=== PATIENT | female | born 1990 | race Caucasian/White ===

== ENCOUNTER 2020-04-26 00:02 | Inpatient (IN) | payer OTHER ==
--- NOTE | 2020-04-25 20:24 | PCM.LDHP ---
L&D History of Present Illness - General Date of Service: 04/26/20 Admit Problem/Dx: Admission Diagnosis/Problem Admission Diagnosis/Problem 04/25/20 20:13 Alicia is a 29-year-old 1 para 0 white female scheduled to be admitted on 04/26/2020 at 40-2/7 weeks gestational age with an DANDRE of 04/24/2020 for induction of labor. Source of Information: Patient History Limitations: Reports: No Limitations - History of Present Illness Introduction:: Alicia is a 29-year-old 1 para 0 white female scheduled to be admitted on 04/26/2020 at 40-2/7 weeks gestational age with an DANDRE of 04/24/2020 for induction of labor. Procedure of induction of labor, its risks, benefits, limitations and follow-up were all discussed in detail with patient and her . They appear to understand and wished to proceed. 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 DANDRE of 04/24/2020 is determined by a certain last menstrual period starting 07/19/2019 and supported by 2 ultrasounds done on 10/07/2019 at 11-2/7 weeks gestational age and again at 12/22/2019 at 21- 6/7 weeks gestational age. Patient had menarche at age 10. Cycles q. 26 to 20 days. Positive hCG was on 08/17/2019. She was not using any contraception at the time of conception and this is a desired . Her last menstrual period of 07/19/2019 was certain. She denies any STDs. Has not had any abnormal Pap smears in the past. course. Alicia was seen for first annual visit on 10/07/2019. Ultrasound was done at that time. She was seen on a regular basis throughout the pregnan cy. Her weight gain was from 152 to 175.4 pounds for 23.4 pound increase. Her vital signs remained stable throughout the course. Fundal height growth was appropriate. Patient desired natural but is okay with epidural if necessary. She is group B strep negative. Her blood is all negative. She did receive Rh immunoglobulin on 02/01/2020. She plans to breast-feed. Her prequel noninvasive screen was negative for trisomy 21, 18 and 13. She is noted to have a vitamin D deficiency has not been on supplement for that throughout the . She is rubella immune. She had her influenza immunization on 12/14/2019 and her Tdap on 02/14/2020. She had her hepatitis B immunizations in 2013. Laboratory testing in shows her blood to be O- with a negative an tibody screen. First labs showed a hemoglobin of 13.0 g/dL and platelets were 330,000. She is rubella immune. RPR is nonreactive. Urine culture was negative. Hepatitis B surface antigen and HIV assays were both negative. Gonorrhea tests were both negative. TSH on 10/07/2019 shows a level of 1.251 mg/mL. Her hemoglobin at second trimester was 12.1 g/dL and platelets were 310,000. 1 hour GTT was mildly elevated at 132 mg/dL. Her 3-hour glucose tolerance test however was normal with a fasting blood sugar 94, a 1 hour glucose was 127, and a 2-hour glucose was 114 and 3-hour glucose was 99. Repeat hemoglobin on 02/01/2020 was 11.4 g/dL and her platelets were 345,000. She is group B strep negative. Antibody screen done prior to her Rh immunoglobulin therapy was negative. Allergies: None Medications: 1. vitamins 1 daily 2. Vitamin D3 capsuledose unknown daily 3. Pepcid tabs 1 tablet daily as needed for gastroesophageal reflux. 4. Vitamin B6 tablets Past medical history: 1. GERD 2. Spider nevi 3. Primary infertility Past surgical history: 1. [place] teeth extraction. Family history: Mother is alive but with history of hypothyroidism, osteopo rosis, rheumatoid arthritis and depression. Father is alive and well with history of kidney stones. Brother is alive and well. Maternal grandmother is age 95 from with history of arthritis. from old age. Maternal grandfather is secondary to congestive heart failure. Paternal grandmother is at age 75 from dementia. Paternal grandfather is at age 60 from colon cancer. There is no known family history of cancer otherwise, bleeding or blood clotting disorders, anesthesia related issues or related issues. Social history: Patient is . is Edwin Keller. She is a college graduate with a degree in nursing. She has worked in the OR and also works at [employer]. She does not use any significant muscle alcohol, drugs or tobacco. She and her Dick live in [place], [place]. Review of systems: In general patient has no complaints. Baby has been active. Skin: Negative Lungs: No infectious symptoms or shortness of breath Cardiovascular: No chest pain or exercise intolerance Breasts: No lumps, changes in size, pain, dimpling, discharge or axillary or supraclavicular concerns. GI: Negative : Negative Musculoskeletal: Negative Neurological: Negative Physical exam: In general the patient is well-developed, well-nourished, pleasant female of stated age in no acute distress. Last evaluation clinic on 05/2020 her blood pressure was normal. Fundal height at 36.5 cm. Baby in vertex presentation. Cervix was 2+ centimeters, 85% effaced, soft, -1, mid position. Skin is warm dry without lesions. HEENT, neck and back within normal limits. Lungs are clear with good breath sounds in all lung mead. Cardiovascular exam shows regular and rhythm without murmurs. Breast exam performed at first visit was unremarkable. Is not repeated today. Patient does plan to breast-feed. Abdomen is gravid with fundal height of 36.5 cm. Baby in vertex presentation. Genital per digital exam is as above. Extremities and neurological exam are grossly within normal limits. - Related Data Allergies/Adverse Reactions: Allergies Allergy/AdvReac Type Severity Reaction Status Date / Time No Known Allergies Allergy Verified 12/19/17 11:18 Home Medications: Home Meds Ascorbic Acid [Vitamin C] 1,000 mg PO DAILY 04/12/20 [History] Cholecalciferol (Vitamin D3) [Vitamin D] 2,000 units PO DAILY 04/12/20 [History] Famotidine [Pepcid] 20 mg PO DAILY 04/12/20 [History] Pnv No.95/Ferrous Fum/Folic AC [ Tablet] 1 each PO BID 04/12/20 [History] Past Medical History HEENT History: Reports: Impaired Vision - Past Surgical History HEENT Surgical History: Reports: Oral Surgery Social & Family History - Family History Family Medical History: No Pertinent Family History - Caffeine Use Caffeine Use: Reports: Coffee H&P Review of Systems - Review of Systems: Review Of Systems: See Below L&D Exam - Exam Exam: See Below Problem List Initiated/Reviewed/Updated: Yes Assessment/Plan Comment:: Charmaine Vargas is a 29-year-old 1 para 0 white female scheduled to be admitted on 04/26/2020 at 40-2/7 weeks gestational age with an DANDRE of 04/24/2020 for induction of labor. 2. Group B strep negative 3. Patient desires natural labor but is okay with epidural if necessary. 4. Patient plans to breast-feed. 5. [place] noninvasive screen was negative for trisomy 21, 18 and 13. 6. Vitamin D deficiency being supplemented during 5. O- blood patient given RhoGam during the course of . Plan: 1. Admit early on 04/26/2020 for induction of labor. Will initiate labor with Pitocin per protocol and then proceed with AROM when possible. 2. Pain medication and control is discussed with patient. She wishes natural labor but is open to epidural which has been discussed with her. 3. Support breast-feeding decision 4. Routine labor care 5. Labs upon admission include CBC, RPR, Covid testing
[2020-04-26] MEDS ORDERED: Sodium Chloride 0.9% 10 ML Syringe FLUSH PRN (00:09)
[2020-04-26] MEDS ORDERED: Nalbuphine 10 MG/1 ML Vial IVPUSH PRN (00:09)
[2020-04-26] MEDS ORDERED: Ondansetron 4 MG/2 ML SDV IVPUSH PRN (00:09)
[2020-04-26] MEDS ORDERED: Oxytocin/Lactated Ringers 10 UNIT/1,000 ML BAG IV SCH ×2 (00:15)
[2020-04-26] MEDS: Lactated Ringers 1,000 ML IV SCH ×4 (01:31→10:20)
[2020-04-26] MEDS ORDERED: ePHEDrine 50 MG/ML SDV IVPUSH PRN (07:46)
[2020-04-26] MEDS ORDERED: Bupivacaine/fentaNYL/NS 100 ML Bag EPIDUR PRN (07:46)
[2020-04-26] MEDS ORDERED: fentaNYL 100 MCG/2 ML SDV EPIDUR PRN (07:46)
[2020-04-26] MEDS ORDERED: diphenhydrAMINE 50 MG/ML SDV IVPUSH PRN (07:46)
--- NOTE | 2020-04-26 09:14 | PCM.PREANE ---
Preanesthetic Assessment - Procedure Proposed Procedure: jose - Anesthesia/Transfusion/Family Hx Anesthesia History: Prior Anesthesia Without Reaction Family History of Anesthesia Reaction: No Transfusion History: No Prior Transfusion(s) - Review of Systems General: No Symptoms Pulmonary: No Symptoms Cardiovascular: No Symptoms Gastrointestinal: No Symptoms Neurological: No Symptoms Other: Reports: None - Physical Assessment Vital Signs: Last Vital Signs Temp 99.1 F 04/26/20 00:10 Pulse 91 04/26/20 00:10 Resp 14 04/26/20 00:10 BP 132/86 04/26/20 00:10 Pulse Ox Height: 5 ft 2 in Weight: 81.647 kg ASA Class: 2 Mental Status: Alert & Oriented x3 Airway Class: Mallampati = 1 Dentition: Reports: Normal Dentition Thyro-Mental Finger Breadths: 3 Mouth Opening Finger Breadths: 3 ROM/Head Extension: Full Lungs: Clear to Auscultation, Normal Respiratory Effort Cardiovascular: Regular Rate, Regular Rhythm - Lab Values: Laboratory Last Values WBC 12.47 K/mm3 (3.98-10.04) H 04/26/20 00:34 RBC 3.98 M/mm3 (3.98-5.22) 04/26/20 00:34 Hgb 11.6 gm/dl (11.2-15.7) 04/26/20 00:34 Hct 35.9 % (34.1-44.9) 04/26/20 00:34 MCV 90.2 fl (79.4-94.8) 04/26/20 00:34 MCH 29.1 pg (25.6-32.2) 04/26/20 00:34 MCHC 32.3 g/dl (32.2-35.5) 04/26/20 00:34 RDW Std Deviation 53.8 fL (36.4-46.3) H 04/26/20 00:34 Plt Count 281 K/mm3 (182-369) 04/26/20 00:34 MPV 8.9 fl (9.4-12.3) L 04/26/20 00:34 Neut % (Auto) 73.7 % (34.0-71.1) H 04/26/20 00:34 Lymph % (Auto) 19.0 % (19.3-51.7) L 04/26/20 00:34 [place]vert % (Auto) 6.2 % (4.7-12.5) 04/26/20 00:34 Eos % (Auto) 0.8 (0.7-5.8) 04/26/20 00:34 Baso % (Auto) 0.1 % (0.1-1.2) 04/26/20 00:34 Neut # (Auto) 9.20 K/mm3 (1.56-6.13) H 04/26/20 00:34 Lymph # (Auto) 2.37 K/mm3 (1.18-3.74) 04/26/20 00:34 Calvert # (Auto) 0.77 K/mm3 (0.24-0.36) H 04/26/20 00:34 Eos # (Auto) 0.10 K/mm3 (0.04-0.36) 04/26/20 00:34 Baso # (Auto) 0.01 K/mm3 (0.01-0.08) 04/26/20 00:34 SARS-CoV-2 RNA (JOHN) Negative (NEGATIVE) 04/26/20 00:15 - Allergies Allergies/Adverse Reactions: Allergies Allergy/AdvReac Type Severity Reaction Status Date / Time No Known Allergies Allergy Verified 04/26/20 01:25 - Blood Blood Available: No - Acknowledgements Anesthesia Type Planned: Epidural Pt an Appropriate Candidate for the Planned Anesthesia: Yes Alternatives and Risks of Anesthesia Discussed w Pt/Guardian: Yes Pt/Guardian Understands and Agrees with Anesthesia Plan: Yes PreAnesthesia Questionnaire HEENT History: Reports: Impaired Vision Cardiovascular History: Reports: None Respiratory History: Reports: None Gastrointestinal History: Reports: GERD : 1 Para: 0 Musculoskeletal History: Reports: None Hematologic History: Reports: Anemia Oncologic (Cancer) History: Reports: None - Past Surgical History HEENT Surgical History: Reports: Oral Surgery Other HEENT Surgeries/Procedures: wisdom tooth extraction, root canal - SUBSTANCE USE Tobacco Use Status *Q: Never Tobacco User Tobacco Use Within Last Twelve Months: No Second Hand Smoke Exposure: No Days Per Week of Alcohol Use: 0 Recreational Drug Use History: No - HOME MEDS Home Medications: Home Meds Ascorbic Acid [Vitamin C] 1,000 mg PO DAILY 04/12/20 [History] Cholecalciferol (Vitamin D3) [Vitamin D] 2,000 units PO DAILY 04/12/20 [History] Famotidine [Pepcid] 20 mg PO DAILY 04/12/20 [History] Pnv No.95/Ferrous Fum/Folic AC [ Tablet] 1 each PO BID 04/12/20 [H istory] Iron 18 mg PO BID 04/26/20 [History] - CURRENT (IN HOUSE) MEDS Current Meds: Current Medications Diphenhydramine HCl (Benadryl) 25 mg IVPUSH Q6H PRN PRN Reason: pruritis Ephedrine Sulfate (Ephedrine Sulfate) 5 mg IVPUSH ASDIRECTED PRN PRN Reason: Hypotension Fentanyl (Sublimaze) 100 mcg EPIDUR Q3H PRN PRN Reason: Pain Last Admin: 04/26/20 08:44 Dose: 100 mcg Documented by: Fentanyl/Bupivacaine HCl (Fentanyl/Bupivacaine/Ns 2 Mcg-0.125% 100 Ml) 100 ml EPIDUR ASDIRECTED PRN PRN Reason: Pain Last Admin: 04/26/20 08:44 Dose: 100 ml Documented by: Oxytocin/Lactated Ringer's (Pitocin In Lr 10 Units/1,000 Ml) 10 unit in 1,000 mls @ 12 mls/hr IV TITRATE MATT; Protocol Last Titration: 04/26/20 07:04 Dose: 14 munits/min, 84 mls/hr Documented by: Oxytocin/Lactated Ringer's (Pitocin In Lr 10 Units/1,000 Ml) 10 unit in 1,000 mls @ 500 mls/hr IV .CONTINUOUS MATT Lactated Ringer's (Ringers, Lactated) 1,000 mls @ 100 mls/hr IV ASDIRECTED MATT Last Admin: 04/26/20 08:46 Dose: 100 mls/hr Documented by: Nalbuphine HCl (Nubain) 10 mg IVPUSH Q2H PRN PRN Reason: Pain Ondansetron HCl (Zofran) 4 mg IVPUSH Q4H PRN PRN Reason: Nausea/Vomiting Sodium Chloride (Saline Flush) 10 ml FLUSH ASDIRECTED PRN PRN Reason: Keep Vein Open
[2020-04-26] MEDS ORDERED: Bupivacaine 0.25% 10 ML SDV ONE (14:00)
[2020-04-26] MEDS ORDERED: Benzocaine/Menthol 20%-0.5% Spray 56 GM Canister TOP PRN (18:03)
[2020-04-26] MEDS ORDERED: Witch Hazel Medicated Pads 40/Jar TOP PRN (18:03)
--- NOTE | 2020-04-26 18:04 | PCM.SN.2 ---
- Free Text/Narrative Note: Alicia is a 29-year-old 1 para 1-0-0-1 female scheduled to be admitted on 04/26/2020 at 40-2/7 weeks gestational age with an DANDRE of 04/24/2020 for induction of labor. She was started on Pitocin and shortly after midnight on 04/26/2020. This was increased to provide adequate contractions. At approximately 0730 hrs. artificial rupture membranes was undertaken with resultant clear amniotic fluid. Patient's labor progressed. She underwent epidural for labor analgesia with good results. heart tones occasionally had a short bradycardias associated with them. These however resolved spontaneously every time and variability remained good throughout the labor course. At 1559 hrs. the patient who had been pushing for approximately 1 hour but began having repetitive late decelerations and the decision was made to proceed with attempt at vacuum extraction. This was discussed in detail with the patient and her including risk, benefits, alternatives of care and they gave verbal consent per protocol for the procedure. The vacuum extraction was then undertaken. Within the course of 3 contractions the patient delivered a viable, cameron, female with Apgars of 8 and 9 in a direct occiput posterior position. It should be noted in between contractions vacuum negative pressure was released. Midline episiotomy was made but was extended to a small fourth degree laceration with delivery of the baby's head. The baby was placed on mom's abdomen. Nose mouth were bulb suction. Pitocin was increased to 500 cc an hour to facilitate increase in uterine tone to reduce risk of bleeding. The baby weighed 2660 g (5 pounds 13.8 ounces) and was 19.5 inches long. The baby is allowed to stay with mom for period of time. The umbilical cord had 3 vessels within it. The umbilical cord is allowed to pulsate for 3 minutes after which was then clamped and cut by the baby's father. Cord blood was obtained. The placenta delivered in a Schultze presentation at 1610 hrs., it was small but appeared intact and complete and was discarded per patient desire. Fourth-degree perineal laceration was repaired in routine fashion. The rectal mucosa was reapproximated with a short running suture of 3-0 Monocryl. The external anal sphincter was repaired in the routine fashion. Is reapproximated midline and with a [id number] suture was sewn together. The capsule was closed around the anal sphincter muscle. Remainder of the episiotomy/laceration was repaired in a routine episiotomy fashion with 3-0 Monocryl suture. The patient was evaluated rectal exam at the end of the procedure and the rectal mucosa appeared intact. Estimated blood loss was 300 cc. The patient plans to breast-feed. Condition: Good
[2020-04-26] MEDS: Ibuprofen 600 MG Tab PO PRN ×2 (18:08→23:00)
[2020-04-26] MEDS: Acetaminophen 325 MG Tab PO PRN (20:32)
[2020-04-26] MEDS: Docusate Sodium 100 MG Cap PO SCH (20:33)
[2020-04-27] MEDS: Ibuprofen 600 MG Tab PO PRN ×3 (04:18→18:14)
--- NOTE | 2020-04-27 06:55 | PCM.PNPP ---
- General Info Date of Service: 04/27/20 Subjective Update: Doing well. Minimal pain. Voiding. Tolerating pos. No BM yet - Review of Systems General: Reports: No Symptoms HEENT: Reports: No Symptoms Pulmonary: Reports: No Symptoms Cardiovascular: Reports: No Symptoms Gastrointestinal: Reports: No Symptoms Genitourinary: Reports: No Symptoms Musculoskeletal: Reports: No Symptoms Skin: Reports: No Symptoms Neurological: Reports: No Symptoms Psychiatric: Reports: No Symptoms - General Info Date of Service: 04/27/20 - Patient Data Vital Signs - Most Recent: Last Vital Signs Temp 36.5 C 04/27/20 04:15 Pulse 65 04/27/20 04:15 Resp 16 04/27/20 04:15 BP 102/84 04/27/20 04:15 Pulse Ox 99 04/27/20 04:15 Weight - Most Recent: 81.647 kg I&O - Last 24 Hours: Intake & Output 04/26/20 04/26/20 04/27/20 14:59 22:59 06:59 Intake Total 0 6792 Output Total 2500 360 Balance -2500 6432 Lab Results - Last 24 Hours: Laboratory Results - last 24 hr 04/26/20 04/26/20 Range/Units 00:34 20:33 RPR Non-reactive (NONREACTIVE) Blood Type O NEGATIVE Gel Antibody Screen Negative Screen 0 ros/5 flds - neg RhIG Candidate? Yes Rhogam Indicated Yes, baby rh unknown H Med Orders - Current: Current Medications Acetaminophen (Tylenol) 650 mg PO Q4H PRN PRN Reason: mild pain or fever Last Admin: 04/26/20 20:32 Dose: 650 mg Documented by: Benzocaine/Menthol (Dermoplast Pain Relief [place]) 0 gm TOP ASDIRECTED PRN PRN Reason: Perineal Comfort Measure Last Admin: 04/26/20 18:09 Dose: 1 can Documented by: Docusate Sodium (Colace) 100 mg PO BID [facility] Last Admin: 04/26/20 20:33 Dose: 100 mg Documented by: Ibuprofen (Motrin) 600 mg PO Q4H PRN PRN Reason: Mild pain or fever Last Admin: 04/27/20 04:18 Dose: 600 mg Documented by: Prenat Multivit/College Teacher/Iron/Folic Ac ( Plus Iron) 1 each PO DAILY [facility] Matteo Russell (Tucks) 1 pad TOP ASDIRECTED PRN PRN Reason: Perineal Comfort Measure Last Admin: 04/26/20 18:09 Dose: 1 container Documented by: Discontinued Medications Diphenhydramine HCl (Benadryl) 25 mg IVPUSH Q6H PRN PRN Reason: pruritis Ephedrine Sulfate (Ephedrine Sulfate) 5 mg IVPUSH ASDIRECTED PRN PRN Reason: Hypotension Fentanyl (Sublimaze) 100 mcg EPIDUR Q3H PRN PRN Reason: Pain Last Admin: 04/26/20 08:44 Dose: 100 mcg Documented by: Fentanyl/Bupivacaine HCl (Fentanyl/Bupivacaine/Ns 2 Mcg-0.125% 100 Ml) 100 ml EPIDUR ASDIRECTED PRN PRN Reason: Pain Last Admin: 04/26/20 08:44 Dose: 100 ml Documented by: Oxytocin/Lactated Ringer's (Pitocin In Lr 10 Units/1,000 Ml) 10 unit in 1,000 mls @ 12 mls/hr IV TITRATE MATT; Protocol Last Titration: 04/26/20 16:01 Dose: 166.5 munits/min, 999 mls/hr Documented by: Oxytocin/Lactated Ringer's (Pitocin In Lr 10 Units/1,000 Ml) 10 unit in 1,000 mls @ 500 mls/hr IV .CONTINUOUS MATT Last Admin: 04/26/20 16:41 Dose: 999 mls/hr Documented by: Lactated Ringer's (Ringers, Lactated) 1,000 mls @ 100 mls/hr IV ASDIRECTED MATT Last Admin: 04/26/20 10:20 Dose: 100 mls/hr Documented by: Nalbuphine HCl (Nubain) 10 mg IVPUSH Q2H PRN PRN Reason: Pain Ondansetron HCl (Zofran) 4 mg IVPUSH Q4H PRN PRN Reason: Nausea/Vomiting Sodium Chloride (Saline Flush) 10 ml FLUSH ASDIRECTED PRN PRN Reason: Keep Vein Open - Infant Interaction Support Person: - Recovery Exam Fundal Tone: Firm Fundal Level: 1 Fingerbreadths Below Umbilicus Fundal Placement: Midline Lochia Amount: Small Lochia Color: Rubra/Red Perineum Description: Other (see below) Other Perinuem Description: Epesiotomy with 4th degree. Episiotomy/Laceration: Approximated Bladder Status: Voiding - Exam General: Alert, Oriented HEENT: Pupils Equal Neck: Supple Lungs: Clear to Auscultation, Normal Respiratory Effort Cardiovascular: Regular Rate, Regular Rhythm GI/Abdominal Exam: Normal Bowel Sounds, Soft, Non-Tender, No Organomegaly, No Distention, No Abnormal Bruit, No Mass, Pelvis Stable Extremities: Normal Inspection, Normal Range of Motion, Non-Tender, No Pedal Edema, Normal Capillary Refill Skin: Warm, Intact Neurological: No New Focal Deficit Psy/Mental Status: Alert, Normal Affect, Normal Mood - Problem List & Annotations (1) Fourth degree laceration of perineum during delivery, SNOMED Code(s): 030547715 Code(s): O70.3 - FOURTH DEGREE PERINEAL LACERATION DURING DELIVERY Status: Acute Current Visit: Yes (2) Vacuum extraction, delivered, current hospitalization SNOMED Code(s): 104288212 Code(s): O66.5 - ATTEMPTED APPLICATION OF VACUUM EXTRACTOR AND FORCEPS Status: Acute Current Visit: Yes - Problem List Review Problem List Initiated/Reviewed/Updated: Yes - Assessment Assessment:: PPD1 Doing well. Probable discharge tomorrow.
--- NOTE | 2020-04-27 08:46 | PCM48HPAN ---
Post Anesthesia Note - EVALUATION WITHIN 48HRS OF ANESTHETIC Vital Signs in Normal Range: Yes Patient Participated in Evaluation: Yes Respiratory Function Stable: Yes Airway Patent: Yes Cardiovascular Function Stable: Yes Hydration Status Stable: Yes Pain Control Satisfactory: Yes Nausea and Vomiting Control Satisfactory: Yes Mental Status Recovered: Yes Vital Signs: Last Vital Signs Temp 36.5 C 04/27/20 04:15 Pulse 65 04/27/20 04:15 Resp 16 04/27/20 04:15 BP 102/84 04/27/20 04:15 Pulse Ox 99 04/27/20 04:15 - COMMENTS/OBSERVATIONS Free Text/Narrative:: no anesthesia complications noted
[2020-04-27] MEDS: Docusate Sodium 100 MG Cap PO SCH ×2 (08:49→20:43)
[2020-04-27] MEDS: Acetaminophen 325 MG Tab PO PRN ×3 (08:49→20:43)
[2020-04-27] MEDS: Prenatal Multivitamin with Calcium/Folic Acid/Iron Tab PO SCH (08:49)
[2020-04-28] MEDS: Ibuprofen 600 MG Tab PO PRN ×2 (01:58→07:58)
[2020-04-28] MEDS: Acetaminophen 325 MG Tab PO PRN (05:38)
[2020-04-28] MEDS: Docusate Sodium 100 MG Cap PO SCH (07:59)
[2020-04-28] MEDS: Prenatal Multivitamin with Calcium/Folic Acid/Iron Tab PO SCH (07:59)
--- NOTE | 2020-04-28 11:26 | PCM.SN.2 ---
- Free Text/Narrative Note: Post Progress Note PPD #2 Subjective: Doing well overall. Ambulating without difficulty. Lochia minimal. Voiding without difficulty. Tolerating regular diet without nausea or vomiting. Pain controlled with oral medications. Breast-feeding with minimal difficulty. Patient reports that she has had several bowel movements since delivery and these have gone well without significant straining. No significant bleeding noted on the stools. Objective: Vitals: Vital Signs - 24 hr 04/27/20 04/27/20 04/28/20 13:56 20:09 04:07 Temperature 36.4 C 36.4 C 36.4 C Pulse, 84 76 70 Peripheral Respiratory 16 16 16 Rate Blood Pressure 124/74 124/79 120/82 O2 Sat by Pulse 99 99 99 Oximetry 04/28/20 07:52 Temperature 36.7 C Pulse, 92 Peripheral Respiratory 14 Rate Blood Pressure 129/74 O2 Sat by Pulse 99 Oximetry Physical Exam General: Alert and oriented, no acute distress Lungs: Clear to auscultation bilaterally Heart: Regular rate and rhythm Abdomen: Soft, minimal appropriate tenderness, non-distended, fundus midline, no ntender, and at the umbilicus Extremities: Trace edema in bilateral lower extremities to mid shins, no calf tenderness bilaterally ASSESSMENT: 29-year-old female -0-0-1 s/p vacuum-assisted vaginal delivery PPD ##2, complicated by fourth degree laceration during delivery with repair and Rh- status PLAN: Doing well Breast-feeding with minimal difficulty. Assist as needed Lochia minimal. Continue to monitor for appropriate lochia. Continue routine care Patient continue with bowel regimen to ensure that she does not have breakdown of her fourth degree repair. Patient should continue with Colace twice daily and may increase to 4 times daily as needed. She may also use milk of magnesia and MiraLAX as needed for constipation. Patient with O- blood type and infant with report of a negative blood type. The lab states that the blood type was not able to be fully confirmed as a negative and patient was given RhoGam prior to delivery. Discharge home today Jimbo Dorman MD 11:25 AM 04/28/2020
--- NOTE | 2020-04-28 11:32 | PCM.DCSUM1 ---
Discharge Summary - Hospital Course Free Text/Narrative:: Alicia is a 29-year-old 1 para 1-0-0-1 female scheduled to be admitted on 04/26/2020 at 40-2/7 weeks gestational age with an DANDRE of 04/24/2020 for induction of labor. She was started on Pitocin and shortly after midnight on 04/26/2020. This was increased to provide adequate contractions. At approximately 0730 hrs. artificial rupture membranes was undertaken with resultant clear amniotic fluid. Patient's labor progressed. She underwent epidural for labor analgesia with good results. heart tones occasionally had a short bradycardias associated with them. These however resolved spontaneously every time and variability remained good throughout the labor course. At 1559 hrs. the patient who had been pushing for approximately 1 hour but began having repetitive late decelerations and the decision was made to proceed with attempt at vacuum extraction. This was discussed in detail with the patient and her including risk, benefits, alternatives of care and they gave verbal consent per protocol for the procedure. The vacuum extraction was then undertaken. Within the course of 3 contractions the patient delivered a viable, cameron, female infant with Apgars of 8 and 9 in a direct occiput posterior position. It should be noted in between contractions vacuum negative pressure was released. Midline episiotomy was made but was extended to a small fourth degree laceration with delivery of the baby's head. The baby was placed on mom's abdomen. Nose mouth were bulb suction. Pitocin was increased to 500 cc an hour to facilitate increase in uterine tone to reduce risk of bleeding. The baby weighed 2660 g (5 pounds 13.8 ounces) and was 19.5 inches long. The baby is allowed to stay with mom for period of time. The umbilical cord had 3 vessels within it. The umbilical cord is allowed to pulsate for 3 minutes after which was then clamped and cut by the baby's father. Cord blood was obtained. The placenta delivered in a Schultze presentation at 1610 hrs., it was small but appeared intact and complete and was discarded per patient desire. Fourth-degree perineal laceration was repaired in routine fashion. The rectal mucosa was reapproximated with a short running suture of 3-0 Monocryl. The external anal sphincter was repaired in the routine fashion. Is reapproximated midline and with a [id number] suture was sewn together. The capsule was closed around the anal sphincter muscle. Remainder of the episiotomy/laceration was repaired in a routine episiotomy fashion with 3-0 Monocryl suture. The patient was evaluated rectal exam at the end of the procedure and the rectal mucosa appeared intact. Estimated blood loss was 300 cc. The patient plans to breast-feed. Condition: Good Diagnosis: Stroke: No - Discharge Data Discharge Date: 04/28/20 Discharge Disposition: Home, Self-Care 01 Condition: Good - Referral to Home Health Primary Care Physician: Demario Aguilar MD - Discharge Diagnosis/Problem(s) (1) 40 weeks gestation of SNOMED Code(s): 59398164 ICD Code: Z3A.40 - 40 WEEKS GESTATION OF Status: Acute Current Visit: Yes (2) Rh negative state in antepartum period SNOMED Code(s): 932388362 ICD Code: O26.899 - OTH RELATED CONDITIONS, UNSPECIFIED TRIMESTER; Z67.91 - UNSPECIFIED BLOOD TYPE, RH NEGATIVE Status: Acute Current Visit: Yes (3) Fourth degree laceration of perineum during delivery, SNOMED Code(s): 957614408 ICD Code: O70.3 - FOURTH DEGREE PERINEAL LACERATION DURING DELIVERY Status: Acute Current Visit: Yes (4) Vacuum extraction, delivered, current hospitalization SNOMED Code(s): 547880922 ICD Code: O66.5 - ATTEMPTED APPLICATION OF VACUUM EXTRACTOR AND FORCEPS Status: Acute Current Visit: Yes - Patient Summary/Data Complications: Fourth degree extension of midline episiotomy during vacuum- assisted vaginal delivery, repaired in normal fashion Consults: None Hospital Course: Alicia Keller was admitted for induction of labor. On admission her cervix was dilated to 2 cm. She was GBS negative. She was given pitocin for augmentation. She was given an epidural for anesthesia. She had artificial rupture of membranes with clear fluid. She progressed to complete and began pushing. On 04/26/2020 she had a vacuum-assisted vaginal delivery of a live female infant at 15:59. Apgars of 8 and 9. Weight of 2660 g (5 pounds 13.8 ounces). Her delivery was complicated by 1/4 degree extension of a midline episiotomy. The fourth degree laceration was repaired in routine fashion. Please see delivery note for full details. Her course was uneventful. She was having soft bowel movements prior to discharge. Her pain was well controlled and she had minimal lochia. She was ambulating, tolerating a regular diet and voiding normally. She was breast-feeding with minimal difficulty. She was afebrile and her hematocrit was 35.9 on admission. She desired to be discharged home on the morning of PPD #2. Her blood type is O- and infant has reported A- blood type. The blood bank reports that they were not able to do full confirmation testing on the blood type to ensure that it is truly A- and patient was given RhoGam prior to delivery to ensure that she does not potentially become isoimmunized due to the possibility that infant may not be A- blood type. - Patient Instructions Diet: Regular Diet as Tolerated Activity: Apply Ice, As Tolerated Activity, Other: Nothing in the vagina for 6 weeks Driving: May Drive Today Showering/Bathing: May Shower Notify Provider of: Fever, Increased Pain, Swelling and Redness, Drainage, Nausea and/or Vomiting Other/Special Instructions: Please contact your physician's office if you have heavy vaginal bleeding enough to soak a pad in less than an hour for several hours. Monitor for any signs of an infection in the breasts with severe pain or redness of the breast. Please ensure that you are not having to strain significantly with bowel movements. Recommend for you to use Colace 100 mg twice daily and may increase up to a total of 4 times daily as needed. You can also use milk of magnesia or MiraLAX as needed for constipation. If the constipation gets severe you can use magnesium citrate. - Discharge Plan *PRESCRIPTION DRUG MONITORING PROGRAM REVIEWED*: Not Applicable *COPY OF PRESCRIPTION DRUG MONITORING REPORT IN PATIENT SULY: Not Applicable Home Medications: Home Meds Ascorbic Acid [Vitamin C] 1,000 mg PO DAILY 04/12/20 [History] Cholecalciferol (Vitamin D3) [Vitamin D] 2,000 units PO DAILY 04/12/20 [History] Pnv No.95/Ferrous Fum/Folic AC [ Tablet] 1 each PO BID 04/12/20 [History] Iron 18 mg PO BID 04/26/20 [History] Acetaminophen [Tylenol] 650 mg PO Q4H PRN tablet 04/28/20 [Rx] Benzocaine/Menthol [Dermoplast Pain Relief Presho] 1 spray TOP ASDIRECTED PRN canister 04/28/20 [Rx] Docusate Sodium [Colace] 100 mg PO BID cap 04/28/20 [Rx] Ibuprofen [Motrin] 600 mg PO Q6H PRN tablet 04/28/20 [Rx] matteo Russell [Tucks] 1 pad TOP ASDIRECTED PRN pad 04/28/20 [Rx] Patient Handouts: Care of a Perineal Tear, Care After Vaginal Delivery Referrals: Demario Aguilar MD [Primary Care Provider] - (Follow-up in 2 weeks for routine visit or earlier as needed.) - Discharge Summary/Plan Comment DC Time >30 min.: No - Patient Data Vitals - Most Recent: Last Vital Signs Temp 36.7 C 04/28/20 07:52 Pulse 92 04/28/20 07:52 Resp 14 04/28/20 07:52 BP 129/74 04/28/20 07:52 Pulse Ox 99 04/28/20 07:52 Weight - Most Recent: 81.647 kg I&O - Last 24 hours: Intake & Output 04/27/20 04/28/20 04/28/20 22:59 06:59 14:59 Intake Total 560 Balance 560 Med Orders - Current: Current Medications Acetaminophen (Tylenol) 650 mg PO Q4H PRN PRN Reason: mild pain or fever Last Admin: 04/28/20 05:38 Dose: 650 mg Documented by: Benzocaine/Menthol (Dermoplast Pain Relief Presho) 0 gm TOP ASDIRECTED PRN PRN Reason: Perineal Comfort Measure Last Admin: 04/26/20 18:09 Dose: 1 can Documented by: Docusate Sodium (Colace) 100 mg PO BID [facility] Last Admin: 04/28/20 07:59 Dose: 100 mg Documented by: Ibuprofen (Motrin) 600 mg PO Q4H PRN PRN Reason: Mild pain or fever Last Admin: 04/28/20 07:58 Dose: 600 mg Documented by: Prenat Multivit/Seneca/Iron/Folic Ac ( Plus Iron) 1 each PO DAILY [facility] Last Admin: 04/28/20 07:59 Dose: 1 each Documented by: Matteo Russell (Tucks) 1 pad TOP ASDIRECTED PRN PRN Reason: Perineal Comfort Measure Last Admin: 04/26/20 18:09 Dose: 1 container Documented by: Discontinued Medications Bupivacaine HCl (Sensorcaine-Mpf 0.25%) 10 ml .ROUTE .[facility] Stop: 04/26/20 14:01 Diphenhydramine HCl (Benadryl) 25 mg IVPUSH Q6H PRN PRN Reason: pruritis Ephedrine Sulfate (Ephedrine Sulfate) 5 mg IVPUSH ASDIRECTED PRN PRN Reason: Hypotension Fentanyl (Sublimaze) 100 mcg EPIDUR Q3H PRN PRN Reason: Pain Last Admin: 04/26/20 08:44 Dose: 100 mcg Documented by: Fentanyl/Bupivacaine HCl (Fentanyl/Bupivacaine/Ns 2 Mcg-0.125% 100 Ml) 100 ml EPIDUR ASDIRECTED PRN PRN Reason: Pain Last Admin: 04/26/20 08:44 Dose: 100 ml Documented by: Oxytocin/Lactated Ringer's (Pitocin In Lr 10 Units/1,000 Ml) 10 unit in 1,000 mls @ 12 mls/hr IV TITRATE MATT; Protocol Last Titration: 04/26/20 16:01 Dose: 166.5 munits/min, 999 mls/hr Documented by: Oxytocin/Lactated Ringer's (Pitocin In Lr 10 Units/1,000 Ml) 10 unit in 1,000 mls @ 500 mls/hr IV .CONTINUOUS MATT Last Admin: 04/26/20 16:41 Dose: 999 mls/hr Documented by: Lactated Ringer's (Ringers, Lactated) 1,000 mls @ 100 mls/hr IV ASDIRECTED MATT Last Admin: 04/26/20 10:20 Dose: 100 mls/hr Documented by: Nalbuphine HCl (Nubain) 10 mg IVPUSH Q2H PRN PRN Reason: Pain Ondansetron HCl (Zofran) 4 mg IVPUSH Q4H PRN PRN Reason: Nausea/Vomiting Sodium Chloride (Saline Flush) 10 ml FLUSH ASDIRECTED PRN PRN Reason: Keep Vein Open
== END 2020-04-28 12:20 | disposition home or self-care (01) | DRG 768 ==
LOC: JD.OB 00:02 → OBSVTOIN 15:59 → JD.OB 16:00
PROVIDERS: ADMIT Obstetrics & Gynecology; ATTEND Obstetrics & Gynecology
PROC: 10D07Z6 Extraction of Products of Conception, Vacuum, Via Natural or Artificial Opening (ICD-10-PCS; principal; 2020-04-26)
PROC: 0DQP0ZZ Repair Rectum, Open Approach (ICD-10-PCS; 2020-04-26)
PROC: 10907ZC Drainage of Amniotic Fluid, Therapeutic from Products of Conception, Via Natural or Artificial Opening (ICD-10-PCS; 2020-04-26)
PROC: 0W8NXZZ Division of Female Perineum, External Approach (ICD-10-PCS; 2020-04-26)
PROC: 3E0R3BZ Introduction of Anesthetic Agent into Spinal Canal, Percutaneous Approach (ICD-10-PCS; 2020-04-26)
PROC: 00HU33Z Insertion of Infusion Device into Spinal Canal, Percutaneous Approach (ICD-10-PCS; 2020-04-26)
PROC: 3E0334Z Introduction of Serum, Toxoid and Vaccine into Peripheral Vein, Percutaneous Approach (ICD-10-PCS; 2020-04-26)
DX: O26.893 Other specified pregnancy related conditions, third trimester (principal); Z37.0 Single live birth; O70.3 Fourth degree perineal laceration during delivery; O66.5 Attempted application of vacuum extractor and forceps; Z3A.40 40 weeks gestation of pregnancy; Z20.822 Contact with and (suspected) exposure to COVID-19; Z67.41 Type O blood, Rh negative
CPT/HCPCS: 01967; 36415; 51702; 59025; 59409; 85025; 85461; 86592; 86850; 86900; 86901; A9270-GY; J2590; J2790; J3010; J3490; J7120; U0002

== ENCOUNTER 2022-11-06 09:34 | Inpatient (IN) | payer OTHER ==
[2022-11-06 09:59] LABS: BASOPHILS PERCENT AUTO 0.3 % (0.0-1.0); EOSINOPHILS ABSOLUTE AUTO 0.1 K/mm3 (0.0-0.4); EOSINOPHILS PERCENT AUTO 0.7 % (0.0-6.0); HEMATOCRIT 37.1 % (37.0-47.0); HEMOGLOBIN 12.3 gm/dl (12.0-16.0); IMMATURE GRAN ABSOLUTE AUTO 0.02 K/mm3 (0.00-0.05); IMMATURE GRAN PERCENT AUTO 0.3 % (0.0-0.4); LYMPHOCYTES ABSOLUTE AUTO 1.5 K/mm3 (1.0-4.8); LYMPHOCYTES PERCENT AUTO 20.3 % (24.0-44.0); MEAN CORPUSCULAR HEMOGLOBIN 30.5 pg (28.0-32.0); MEAN CORPUSCULAR HGB CONC 33.2 g/dl (32.0-36.0); MEAN CORPUSCULAR VOLUME 92.1 fl (83.0-99.0); MEAN PLATELET VOLUME 10.6 fl (9.4-12.3); MONOCYTES ABSOLUTE AUTO 0.5 K/mm3 (0.0-0.8); MONOCYTES PERCENT AUTO 6.9 % (0.0-8.0); NEUTROPHILS ABSOLUTE AUTO 5.2 K/mm3 (1.8-7.7); NEUTROPHILS PERCENT AUTO 71.5 % (41.0-71.0); PLATELET COUNT,PLT 168 K/mm3 (150-400); RED BLOOD CELL COUNT 4.03 M/mm3 (4.10-5.30)
[2022-11-06] MEDS ORDERED: Sodium Chloride 0.9% 500 ML IV ONE (10:31)
[2022-11-06 10:40] LABS: ALANINE AMINOTRANSFERASE,ALT 13 U/L (14-59); ASPARTATE AMNIOTRANSFERASE,AST 18 U/L (15-37); CREATININE 0.9 mg/dL (0.55-1.02); ESTIMATED GFR 87 mL/min (>60)
[2022-11-06 10:46] LABS: CREATININE,URINE RAND 150.1 mg/dL (30.0-125.0)
[2022-11-06] MEDS ORDERED: ceFAZolin 2 GM in Sodium Chloride 0.9% 50 ML IV ONE (10:51)
[2022-11-06] MEDS ORDERED: Metoclopramide 10 MG/2 ML SDV IVPUSH ONE ×2 (10:51→11:00)
[2022-11-06] MEDS ORDERED: Sodium Chloride 0.9% 10 ML Syringe FLUSH PRN (10:51)
[2022-11-06] MEDS ORDERED: Ondansetron 4 MG/2 ML SDV IVPUSH PRN (10:51)
[2022-11-06] MEDS ORDERED: Citric Acid/Sodium Citrate Solution 30 ML Cup PO ONE (10:51)
[2022-11-06] MEDS ORDERED: diphenhydrAMINE 50 MG/ML SDV IVPUSH ONE (11:00)
[2022-11-06] MEDS ORDERED: Lactated Ringers 1,000 ML IV SCH (11:00)
[2022-11-06 11:26] LABS: PROTEIN CREATININE RATIO,URINE 3363.1 mg/g (0-149); PROTEIN,URINE RANDOM 504.8 mg/dL (0.0-11.8)
[2022-11-06] MEDS ORDERED: Morphine PF 10 MG/10 ML SDV ONE (11:31)
[2022-11-06] MEDS ORDERED: Ondansetron 4 MG/2 ML SDV ONE (11:31)
[2022-11-06] MEDS ORDERED: Oxytocin 10 Units/1 ML SDV ONE (11:31)
[2022-11-06] MEDS ORDERED: ePHEDrine 50 MG/ML SDV ONE (11:31)
[2022-11-06] MEDS ORDERED: ceFAZolin 2 GM Vial ONE (11:51)
[2022-11-06] MEDS ORDERED: Carboprost Tromethamine 250 MCG/1 ML Amp ONE (11:56)
[2022-11-06] MEDS ORDERED: Phenylephrine 1% 10 MG/ML SDV ONE (11:59)
[2022-11-06] MEDS ORDERED: Ketorolac 30 MG/ML SDV IVPUSH ONE (13:00)
[2022-11-06] MEDS ORDERED: Magnesium Sulfate/Water 6 GM in Premix Bag 1 BAG IV ONE (13:42)
[2022-11-06] MEDS ORDERED: Calcium Gluconate 10% 1 GM/10 ML SDV IV PRN (13:42)
[2022-11-06] MEDS ORDERED: diphenhydrAMINE 50 MG/ML SDV IVPUSH PRN (13:42)
[2022-11-06] MEDS ORDERED: Ondansetron 4 MG/2 ML SDV IV PRN (13:42)
[2022-11-06] MEDS ORDERED: Naloxone 0.4 MG/ML SDV IVPUSH PRN (13:42)
[2022-11-06] MEDS ORDERED: Magnesium Sulfate/Water 4 GM in Premix Bag 1 BAG IV ONE (14:00)
[2022-11-06] MEDS: Lactated Ringers 1,000 ML IV SCH (14:08)
[2022-11-06] MEDS ORDERED: Magnesium Sulfate/Water 2 GM in Premix Bag 1 BAG IV ONE (14:20)
[2022-11-06] MEDS: Magnesium Sulfate/Water 40 GM/1,000 ML BAG IV SCH (14:52)
[2022-11-06] MEDS ORDERED: Promethazine 25 MG Tab PO PRN (16:44)
[2022-11-06] MEDS ORDERED: Promethazine 25 MG Supp RECTAL PRN (16:46)
[2022-11-06] MEDS: Ketorolac 30 MG/ML SDV IVPUSH SCH (18:36)
[2022-11-06] MEDS: Labetalol 100 MG Tab PO SCH ×2 (19:24→22:38)
[2022-11-06] MEDS: Acetaminophen/oxyCODONE 325-5 MG Tab PO PRN (20:43)
[2022-11-06] MEDS ORDERED: Sodium Chloride 0.9% 10 ML Syringe FLUSH SCH (21:00)
[2022-11-07] MEDS: Ketorolac 30 MG/ML SDV IVPUSH SCH ×2 (00:40→06:00)
[2022-11-07] MEDS: Lactated Ringers 1,000 ML IV SCH (03:04)
[2022-11-07] MEDS: Acetaminophen/oxyCODONE 325-5 MG Tab PO PRN ×4 (03:57→23:14)
[2022-11-07 06:11] LABS: HEMATOCRIT 23.2 % (37.0-47.0); MEAN CORPUSCULAR HEMOGLOBIN 30.9 pg (28.0-32.0); MEAN CORPUSCULAR HGB CONC 32.3 g/dl (32.0-36.0); MEAN CORPUSCULAR VOLUME 95.5 fl (83.0-99.0); MEAN PLATELET VOLUME 10.4 fl (9.4-12.3); PLATELET COUNT,PLT 109 K/mm3 (150-400); RED BLOOD CELL COUNT 2.43 M/mm3 (4.10-5.30); WHITE BLOOD CELL COUNT,WBC 6.92 K/mm3 (3.9-11.3)
[2022-11-07 06:23] LABS: HEMOGLOBIN 7.5 gm/dl (12.0-16.0)
[2022-11-07] MEDS: Labetalol 100 MG Tab PO SCH ×2 (09:02→20:34)
[2022-11-07] MEDS: Magnesium Sulfate/Water 40 GM/1,000 ML BAG IV SCH (10:12)
[2022-11-07 16:25] LABS: MEAN CORPUSCULAR HEMOGLOBIN 31.2 pg (28.0-32.0); MEAN CORPUSCULAR HGB CONC 33.3 g/dl (32.0-36.0); MEAN CORPUSCULAR VOLUME 93.5 fl (83.0-99.0); MEAN PLATELET VOLUME 9.6 fl (9.4-12.3); PLATELET COUNT,PLT 157 K/mm3 (150-400); RED BLOOD CELL COUNT 3.21 M/mm3 (4.10-5.30); WHITE BLOOD CELL COUNT,WBC 9.33 K/mm3 (3.9-11.3)
[2022-11-07] MEDS: Ibuprofen 600 MG Tab PO PRN (20:35)
[2022-11-07] MEDS: Docusate Sodium 100 MG Cap PO PRN (20:35)
[2022-11-08] MEDS: Ibuprofen 600 MG Tab PO PRN ×3 (04:08→20:01)
[2022-11-08] MEDS: Labetalol 100 MG Tab PO SCH ×2 (09:14→21:18)
[2022-11-08] MEDS: Acetaminophen/oxyCODONE 325-5 MG Tab PO PRN ×3 (09:19→23:08)
[2022-11-09] MEDS: Ibuprofen 600 MG Tab PO PRN ×2 (02:53→09:35)
[2022-11-09] MEDS: Acetaminophen/oxyCODONE 325-5 MG Tab PO PRN ×2 (04:41→13:54)
[2022-11-09] MEDS: Docusate Sodium 100 MG Cap PO PRN (09:35)
[2022-11-09] MEDS: Labetalol 100 MG Tab PO SCH (09:35)
== END 2022-11-09 14:30 | disposition home or self-care (01) | DRG 788 ==
LOC: JD.OBCHECK 09:34 → JD.OB 09:40 → JD.OBCHECK 10:50 → JD.OB 10:51 → UNDOADMIN 10:51 → JD.OB 10:52
PROVIDERS: ADMIT Obstetrics & Gynecology; ATTEND Obstetrics & Gynecology
PROC: 10D00Z1 Extraction of Products of Conception, Low, Open Approach (ICD-10-PCS; principal; 2022-11-06)
PROC: 3E0334Z Introduction of Serum, Toxoid and Vaccine into Peripheral Vein, Percutaneous Approach (ICD-10-PCS; 2022-11-07)
DX: O14.14 Severe pre-eclampsia complicating childbirth (principal); Z3A.36 36 weeks gestation of pregnancy; O60.14X0 Preterm labor third trimester with preterm delivery third trimester, not applicable or unspecified; O30.043 Twin pregnancy, dichorionic/diamniotic, third trimester; Z37.2 Twins, both liveborn; O32.1XX1 Maternal care for breech presentation, fetus 1; O26.893 Other specified pregnancy related conditions, third trimester; Z67.41 Type O blood, Rh negative
CPT/HCPCS: 01961; 36415; 59025; 82565; 82570; 84156; 84450; 84460; 85025; 85027; 85461; 86592; 86850; 86900; 86901; 94762; A9270-GY; J0690; J1885; J2274; J2370; J2405; J2590; J2765; J2790; J3475; J3490; J7120; J8597

== ENCOUNTER 2023-03-25 07:23 | Day surgery (SDC) | payer OTHER ==
[2023-03-25] MEDS ORDERED: Lidocaine 2% 5 ML SDV ONE (07:47)
[2023-03-25] MEDS ORDERED: fentaNYL 100 MCG/2 ML SDV ONE (07:47)
[2023-03-25] MEDS ORDERED: Dexamethasone 4 MG/ML 5 ML MDV ONE (07:47)
[2023-03-25] MEDS ORDERED: Ondansetron 4 MG/2 ML SDV ONE (07:47)
[2023-03-25] MEDS ORDERED: Propofol 200 MG/20 ML SDV ONE (07:47)
[2023-03-25] MEDS ORDERED: Lidocaine 2% 11 ML Jelly Filled Syringe ONE (07:50)
[2023-03-25] MEDS ORDERED: EPINEPHrine 1 MG/ML SDV ONE (08:08)
[2023-03-25] MEDS ORDERED: Lidocaine 1% 10 ML MDV ONE (08:09)
[2023-03-25] MEDS ORDERED: ceFAZolin 2 GM Vial ONE (08:30)
[2023-03-25] MEDS ORDERED: Midazolam 1 MG/ML 2 ML SDV ONE (08:35)
[2023-03-25] MEDS ORDERED: Lactated Ringers 1,000 ML IV SCH (09:00)
[2023-03-25] MEDS ORDERED: HYDROmorphone 0.5 MG/0.5 ML Syringe IVPUSH PRN (09:04)
[2023-03-25] MEDS ORDERED: fentaNYL 100 MCG/2 ML SDV IVPUSH PRN (09:04)
[2023-03-25] MEDS ORDERED: Ondansetron 4 MG/2 ML SDV IVPUSH PRN (09:04)
[2023-03-25] MEDS ORDERED: Meperidine 50 MG/ML Vial IVPUSH PRN (09:59)
== END 2023-03-25 11:45 | disposition home or self-care (01) ==
LOC: JD.SDS 07:23
PROVIDERS: ATTEND Student in an Organized Health Care Education/Training Program
DX: D18.01 Hemangioma of skin and subcutaneous tissue (principal); K21.9 Gastro-esophageal reflux disease without esophagitis; E55.9 Vitamin D deficiency, unspecified; Z79.899 Other long term (current) drug therapy
CPT/HCPCS: 26115; A9270; J0171; J0690; J1100; J2175; J2250; J2405; J2704; J3010; J7120; 00400; J3490

== ENCOUNTER 2023-04-21 13:11 | Emergency (ER) | payer OTHER | END 2023-04-21 14:50 | disposition home or self-care (01) | LOC: JD.ED 13:11 | DX: L03.113 Cellulitis of right upper limb (principal) | CPT/HCPCS: 73130-26-RT; 73130-RT; 99283 ==